=== PATIENT | male | born 1970 | race Caucasian/White ===

== ENCOUNTER 2020-07-10 12:09 | Inpatient (IN) | payer SELFPAY ==
[~2020-07-10] VITALS: Ht 165.1 cm; Wt 63.5 kg
[2020-07-10] MEDS ORDERED: IBUPROFEN 600MG TABLET PO STA (12:55)
[2020-07-10] MEDS ORDERED: PIPERACILLIN/TAZ 3.375G PREMIX 50 ML IV ONE (13:00)
[2020-07-10] MEDS ORDERED: VANCOMYCIN 1 G PREMIX 200 ML IV ONE (13:00)
[2020-07-10] MEDS ORDERED: SODIUM CHLORIDE 0.9% 1000ML BAG (SEPSIS BOLUS) IV ONE (13:00)
[2020-07-10 13:25] LABS: BASOPHILS % 0.7 % (0.0-2.0); EOSINOPHILS % 1.5 % (0.0-5.0); HEMOGLOBIN. 12.4 g/dL (14.0-18.0); LYMPHOCYTES % 19.1 % (20.0-50.0); MEAN CORPUSCULAR HEMOGLOBIN 30.8 pg (28.0-32.0); MEAN CORPUSCULAR VOLUME 89.3 fL (80.0-94.0); MEAN PLATELET VOLUME 7.2 fl (7.4-10.4); MONOCYTES % 7.6 % (2.0-8.0); NEUTROPHILS % 71.1 % (40.0-76.0); PLATELET 326 x1000/uL (130-400); RED BLOOD CELL COUNT 4.03 mill/uL (4.7-6.1); RED CELL DISTRIBUTION WIDTH 13.7 % (11.6-14.6)
[2020-07-10 13:27] LABS: CHLORIDE 104 mEq/L (98-107)
[2020-07-10 13:28] LABS: CLARITY URINE CLEAR (CLEAR); COLOR URINE YELLOW (YELLOW); KETONES URINE NEGATIVE (NEGATIVE); LEUKOCYTE ESTERASE URINE NEGATIVE (NEGATIVE); NITRITE URINE NEGATIVE (NEGATIVE); OCCULT BLOOD URINE NEGATIVE (NEGATIVE); PH URINE 6.5 (4.5-8.0); PROTEIN URINE NEGATIVE (NEGATIVE); SPECIFIC GRAVITY URINE 1.004 (1.005-1.030); UROBILINOGEN URINE 0.2 E.U./dL (0.2-1.0)
[2020-07-10 13:36] LABS: PROTHROMBIN TIME 10.4 sec (9.6-11.0)
[2020-07-10] MEDS ORDERED: ONDANSETRON HCL 4MG/2ML INJ IV PRN (18:45)
[2020-07-10] MEDS ORDERED: PIPERACILLIN/TAZ 3.375G PREMIX 50 ML IV SCH (18:45)
[2020-07-10] MEDS ORDERED: VANCOMYCIN 1 G PREMIX 200 ML IV SCH (18:45)
[2020-07-10] MEDS ORDERED: DOCUSATE SODIUM 100MG CAPSULE PO PRN (18:45)
[2020-07-10 20:00] VITALS: BP 128/87
[2020-07-10] MEDS: PIPERACILLIN/TAZOBACTAM 3.375 G in DEXT 5% WATER 100 ML IV SCH (23:56)
[2020-07-10] MEDS: THIAMINE HCL 100MG TABLET PO SCH (23:56)
[2020-07-10] MEDS: ENOXAPARIN 40MG/0.4ML SYR SUBCUT SCH (23:57)
[2020-07-11] VITALS: BP 126/89
[2020-07-11] MEDS: VANCOMYCIN 750 MG PREMIX 150 ML IV SCH ×2 (01:35→14:16)
[2020-07-11 04:00] VITALS: BP 155/94
[2020-07-11] MEDS: PIPERACILLIN/TAZOBACTAM 3.375 G in DEXT 5% WATER 100 ML IV SCH ×2 (05:47→13:08)
[2020-07-11 06:14] LABS: CHLORIDE 103 mEq/L (98-107)
[2020-07-11 06:21] LABS: LDL CHOLESTEROL 73 mg/dL (5-100)
[2020-07-11 06:25] LABS: BASOPHILS % 0.9 % (0.0-2.0); HEMATOCRIT. 39.5 % (42.0-52.0); HEMOGLOBIN. 13.3 g/dL (14.0-18.0); LYMPHOCYTES % 14.7 % (20.0-50.0); MEAN CORPUSCULAR HEMOGLOBIN 30.4 pg (28.0-32.0); MEAN CORPUSCULAR VOLUME 90.3 fL (80.0-94.0); MEAN PLATELET VOLUME 7.5 fl (7.4-10.4); MONOCYTES % 8.5 % (2.0-8.0); NEUTROPHILS % 74.9 % (40.0-76.0); PLATELET 322 x1000/uL (130-400); RED BLOOD CELL COUNT 4.37 mill/uL (4.7-6.1); RED CELL DISTRIBUTION WIDTH 13.3 % (11.6-14.6)
[2020-07-11 06:26] LABS: HDL CHOLESTEROL 92 mg/dL (40-59)
[2020-07-11 08:00] VITALS: BP 165/92
[2020-07-11] MEDS ORDERED: POTASSIUM CHLORIDE 20MEQ TABLET SR PO NR (08:00)
[2020-07-11] MEDS ORDERED: PNEUMOCOCCAL 23-VAL P-SAC VAC 0.5 ML IM ONE (08:00)
[2020-07-11] MEDS: THIAMINE HCL 100MG TABLET PO SCH (09:19)
[2020-07-11] MEDS: FOLIC ACID 1MG TABLET PO SCH (09:19)
[2020-07-11 20:00] VITALS: BP 135/88
[2020-07-12] VITALS: BP 125/93
[2020-07-12] MEDS: VANCOMYCIN 1 G PREMIX 200 ML IV SCH ×2 (00:06→05:41)
[2020-07-12] MEDS: ENOXAPARIN 40MG/0.4ML SYR SUBCUT SCH ×2 (00:07→21:43)
[2020-07-12] MEDS: PIPERACILLIN/TAZOBACTAM 3.375 G in DEXT 5% WATER 100 ML IV SCH ×4 (00:07→18:05)
[2020-07-12 04:00] VITALS: BP 146/98
[2020-07-12 07:59] LABS: CHLORIDE 101 mEq/L (98-107)
[2020-07-12 08:00] VITALS: BP 124/74
[2020-07-12] MEDS: THIAMINE HCL 100MG TABLET PO SCH (08:02)
[2020-07-12] MEDS: FOLIC ACID 1MG TABLET PO SCH (08:02)
[2020-07-12 12:00] VITALS: BP 91/60
[2020-07-12] MEDS ORDERED: BACITRACIN 15GM TUBE TOP SCH (14:00)
[2020-07-12 16:00] VITALS: BP 114/70
[2020-07-12] MEDS: VANCOMYCIN 750 MG PREMIX 150 ML IV SCH (18:03)
[2020-07-12 20:00] VITALS: BP 108/75
[2020-07-12] MEDS ORDERED: CEFTRIAXONE 1 G PREMIX 50 ML IV SCH (22:00)
[2020-07-12] MEDS ORDERED: CEFTRIAXONE 1,000 MG in DEXTROSE 5% WATER 50 ML IV SCH (23:00)
[2020-07-13] VITALS: BP 115/70
[2020-07-13] MEDS ORDERED: BACITRACIN 15GM TUBE TOP SCH
[2020-07-13] MEDS: MUPIROCIN 2% OINT 22GM NS SCH ×2 (00:26→21:54)
[2020-07-13] MEDS: VANCOMYCIN 750 MG PREMIX 150 ML IV SCH ×2 (02:30→09:27)
[2020-07-13 04:00] VITALS: BP 134/81
[2020-07-13 08:00] VITALS: BP 117/85
[2020-07-13] MEDS: THIAMINE HCL 100MG TABLET PO SCH (09:21)
[2020-07-13] MEDS: FOLIC ACID 1MG TABLET PO SCH (09:21)
[2020-07-13 12:00] VITALS: BP 119/73
[2020-07-13 16:00] VITALS: BP 132/78
[2020-07-13 20:00] VITALS: BP 133/81
[2020-07-13] MEDS: ENOXAPARIN 40MG/0.4ML SYR SUBCUT SCH (21:53)
[2020-07-14] VITALS: BP 141/87
[2020-07-14] MEDS: VANCOMYCIN 750 MG PREMIX 150 ML IV SCH ×2 (01:39→09:34)
[2020-07-14 04:00] VITALS: BP 141/81
[2020-07-14] MEDS: FOLIC ACID 1MG TABLET PO SCH (09:34)
[2020-07-14] MEDS: MUPIROCIN 2% OINT 22GM NS SCH (09:34)
[2020-07-14] MEDS: THIAMINE HCL 100MG TABLET PO SCH (09:34)
[2020-07-14] MEDS ORDERED: DOXY150T5 PO (11:47)
[2020-07-14 12:42] VITALS: BP 130/80
[2020-07-14] MEDS ORDERED: DOXYCYCLINE HYCLATE 100MG CAPSULE PO ONE (12:45)
[2020-07-14] MEDS ORDERED: DOXYCYCLINE HYCLATE 100MG CAPSULE PO SCH (13:00)
[2020-07-14] MEDS ORDERED: SULFAMETHOXAZOLE/TRIMETHOPRIM 800/160MG TABLET PO SCH (21:00)
[2020-07-14] MEDS ORDERED: AMOXICILLIN/POTASSIUM CLAVULANATE 875/125MG TAB PO SCH (21:00)
== END 2020-07-14 14:20 | disposition home or self-care (01) | DRG 383 ==
LOC: ER 13:14 → ENRESERV 14:39 → 6EST 18:17
PROVIDERS: ATTEND Family Medicine
DX: L03.116 Cellulitis of left lower limb (principal); A49.02 Methicillin resistant Staphylococcus aureus infection, unspecified site; D64.9 Anemia, unspecified; Z87.891 Personal history of nicotine dependence; E86.0 Dehydration; F10.20 Alcohol dependence, uncomplicated; Z59.0 Homelessness; Z20.822 Contact with and (suspected) exposure to COVID-19
CPT/HCPCS: 36415; 71045; 73560; 80048; 80053; 80061; 80202; 81003; 82040; 83605; 84134; 84145; 84484; 85025; 87426; 90732; 93005; 99291; J0696; J1650; J2543; J3370; J7030; J7040; J7060